=== PATIENT | male | born 1995 | race African-American/Black ===

== ENCOUNTER 2017-11-18 05:07 | Emergency (ER) | payer SELFPAY ==
[~2017-11-18] VITALS: Ht 188 cm; Wt 57.6 kg
--- NOTE | 2017-11-18 05:07 | NUR ---
BBRA [id number] FROM HOME FOR N/V/D X 2 HOURS AFTER WAKING UP. 9/10 PAIN RADIATING FROM MIDDLE OF ABDOMEN TO LUQ. VSS NO ACUTE DISTRESS AT THIS TIME. SKIN IS WARM AND INTACT. BREATHING WNL WITH ADEQUATE CHEST RISE/FALL. WILL CONTINUE TO MONITOR FOR ANY CHANGES DURING THE SHIFT.
--- NOTE | 2017-11-18 05:08 | NUR ---
ER MD ALEMAN AT BEDSIDE
[2017-11-18] MEDS ORDERED: ONDANSETRON 4 MG TAB.RAPDIS SL ONE (06:30)
[2017-11-18] MEDS ORDERED: ONDANSETRON 4 MG TAB.RAPDIS ONE (06:39)
--- NOTE | 2017-11-18 06:41 | NUR ---
SIEBEL DEVELOPER AT BEDSIDE FOR BLOOD DRAW
[2017-11-18 06:48] LABS: EOSINOPHILS % (AUTO) 0.9 % (0.0-6.0); HEMATOCRIT 44 % (39-51); HEMOGLOBIN 14.2 g/dL (13.5-17.5); LYMPHOCYTES # (AUTO) 0.7 /CMM (0.8-4.8); LYMPHOCYTES % (AUTO) 6.7 % (20.0-44.0); MEAN CORPUSCULAR HEMOGLOBIN 27 PG (26.0-33.0); MEAN CORPUSCULAR HGB CONC 33 g/dl (31.0-36.0); MEAN CORPUSCULAR VOLUME 82 fL (80-96); MONOCYTES # (AUTO) 0.4 /CMM (0.1-1.30); MONOCYTES % (AUTO) 3.5 % (2.0-12.0); NEUTROPHILS % (AUTO) 88.9 % (43.0-81.0); PLATELET COUNT (AUTO) 207 /CMM (150-450); RDW COEFFICIENT OF VARIATION 13.4 (11.5-15.0); RED BLOOD CELL COUNT(AUTO) 5.34 MIL/uL (4.5-6.0); WHITE BLOOD COUNT (AUTO) 10.1 K/uL (4.3-11.0)
[2017-11-18 07:05] LABS: CALCIUM, SERUM 8.9 mg/dL (8.5-10.1); CREATININE 1.2 mg/dL (0.6-1.3); POTASSIUM 3.8 mmol/L (3.5-5.1)
[2017-11-18 07:10] LABS: BILIRUBIN,DIRECT 0.2 mg/dL (0.0-0.2); BILIRUBIN,TOTAL 0.9 mg/dL (0.2-1.0); TOTAL PROTEIN, SERUM 6.8 g/dL (6.4-8.2)
[2017-11-18 07:12] LABS: LYMPHOCYTES % (MANUAL) 2 % (16-48); MONOCYTES % (MANUAL) 11 % (0-11.0); NEUTROPHILS % (MANUAL) 87 (42-76)
[2017-11-18 07:34] VITALS: BP 110/65
== END 2017-11-18 07:35 | disposition home or self-care (01) ==
LOC: ER 05:10
DX: K29.70 Gastritis, unspecified, without bleeding (principal); R11.10 Vomiting, unspecified
CPT/HCPCS: 36415; 80048; 80076; 83690; 85025; 99284; A4606; Q0162; Z7610

== ENCOUNTER 2019-02-16 12:29 | Emergency (ER) | payer SELFPAY ==
[~2019-02-16] VITALS: Ht 193 cm; Wt 70.3 kg
[2019-02-16 12:35] VITALS: BP 104/39
== END 2019-02-16 15:20 | disposition home or self-care (01) ==
LOC: ER 12:35
DX: S62.011A Displaced fracture of distal pole of navicular [scaphoid] bone of right wrist, initial encounter for closed fracture (principal); W05.1XXA Fall from non-moving nonmotorized scooter, initial encounter; Y93.89 Activity, other specified; Y92.89 Other specified places as the place of occurrence of the external cause; Y99.8 Other external cause status
CPT/HCPCS: 73110